=== PATIENT | female | born 1975 | race Two or more races ===

== ENCOUNTER 2024-09-06 09:57 | Outpatient (REF) | payer OTHER, SELFPAY ==
[2024-09-06 10:55] LABS: MANUAL DIFF FLAG NO
[2024-09-06 11:29] LABS: Appearance Urine Cloudy; Glucose Urine UA Negative (Negative); PH 6.5 (5.0-9.0); Specific Gravity - Urine 1.015 (1.005-1.025); UMIC TRIGGER UACC YES
[2024-09-06 11:35] LABS: UACC Culture Trigger YES
[2024-09-06 11:44] LABS: Alanine Aminotransferase 53 U/L (0-31); Albumin Level 4.2 g/dL (3.5-5.0); Alkaline Phosphatase 68 U/L (39-117); Anion Gap 10 (12-20); Aspartate Amino Transferase 40 U/L (5-31); Blood Urea Nitrogen 22 mg/dL (9-16); Calcium 9.0 mg/dL (8.4-10.2); Carbon Dioxide 26 mmol/L (22-29); Chloride 105 mmol/L (96-108); Cholesterol 202 mg/dL (<200); Estimated Glomerular Filt Rate > 60; HDL Cholesterol 58 mg/dL (>40); Potassium 4.0 mmol/L (3.3-5.1); Sodium 137 mmol/L (135-145); Total Protein 6.8 g/dL (6.5-8.0); Triglycerides 117 mg/dL (<150)
[2024-09-06 11:49] LABS: Hematocrit 35.9 % (37.0-47.0); Hemoglobin 13.1 g/dl (12.0-16.0); Imm Gran Abs Auto 0.03 X10*3/uL (0.00-0.03); Imm Gran Pct Auto 0.3 % (0.0-0.4); Lymphocytes Absolute Auto 1.6 X10*3/uL (1.2-4.9); Mean Corpuscular HGB Conc 36.5 g/dl (31.0-35.0); Mean Corpuscular Hemoglobin 29.1 pg (27.0-33.0); Mean Corpuscular Volume 79.8 fL (80.0-98.0); NRBC Abs Auto 0.000 X10*3/uL (0.0-0.012); NRBC Pct Auto 0.0 /100WBC (0.0-0.2); Platelet Count 250 X10*3/uL (160-400); Red Blood Count 4.50 X10*6/uL (4.20-5.50); White Blood Count 8.8 X10*3/uL (4.8-10.8)
== END 2024-09-06 09:58 | disposition home or self-care (01) ==
LOC: HO.LAB 09:57
PROVIDERS: PCP Physician Assistant; Visit Provider Physician Assistant
DX: I10 Essential (primary) hypertension (principal); J45.909 Unspecified asthma, uncomplicated; R30.0 Dysuria; E66.813 Obesity, class 3; Z68.41 Body mass index [BMI] 40.0-44.9, adult; F98.9 Unspecified behavioral and emotional disorders with onset usually occurring in childhood and adolescence; Z71.3 Dietary counseling and surveillance
CPT/HCPCS: 36415; 80048; 80061; 80076; 81001; 85025; 87086

== ENCOUNTER 2024-09-06 09:57 | Outpatient (AMB) | payer OTHER, SELFPAY ==
--- NOTE | 2024-09-06 10:03 | MHC.PC.OV ---
Vital Signs 09/06/24 10:06 Height 5 ft 2 in Weight 100.244 kg BMI 40.4 BP 108/62 Blood Pressure Location Lt brachial Position Sitting Respiration 16 Pulse 91 Pulse Source Pulse Oximeter Temp 97.5 F Temp Source Temporal Artery Scan Pulse Oximetry (%) 98 Oxygen Delivery Method Room Air Intake Visit Reasons: ? UTI - Croke pt. Management Professionals Required: No Accompanied by: Self / Same As Patient Allergies No Known Allergies (No Known Allergies*) Allergy (Verified 09/06/24 10:03) Medication List - Last Reconciled 09/06/24 by STEPHANIE Malik albuterol sulfate 90 mcg/actuation 2 puffs inhalation Q4H PRN lisinopril-hydrochlorothiazide 10-12.5 mg 1 tab PO DAILY Tobacco use date assessed: 09/06/24 HPI HPI Comments History of Present Illness Details 49 year old female with history of asthma, htn, obesity presents to the office for evaluation and to establish care. Asthma- controlled. Class III obesity- BMI 40.4. Going to the gym off and on. Tries to follow healthy diet. Interested in weight loss mediations. HTN- controlled iw lisinopril- hctz Concerns: Menopausal symptoms. experiences significant anxiety (also has many stressors at home), nausea, attention deficit, and physical discomfort. Using cryobooth with some pain relfief. Hot flashes and brain fog. Not interested in hormones at this time. Attention deficit- difficulty completing tasks, brain fog, difficulty concentrating. Easily overwhelmed as a result. UTI sx- suprapubic pressure, dysuria. no fevers. vaginal spotting. occ spotting after intimacy. no vaginal discharge. Monogomous. No hx recurrent UTI ROS: General: No fevers, malaise, unintentional weight loss HEENT: No blurred vision, diplopia. No sore throat, nasal congestion, rhinorrhea, sinus pain, ear pain Cardiovascular: No chest pain, palpitations, or leg edema Respiratory: No shortness of breath, wheezing, cough GI: No abdominal pain, vomiting, diarrhea, constipation, melena, hematochezia :see hpi Neuro: No headaches, weakness, paresthesias Psych: see hpi Skin: No rashes or lesions EXAM: Constitutional - Awake and Alert, No apparent distress Eyes - PERRL Cardiovascular - S1S2, RRR, No edema Respiratory - Normal lung expansion, Normal respiratory effort, No respiratory distress, CTA bilaterally Extremities - no calf tenderness bilaterally, no swelling Skin - Warm/Dry Neurological - Alert & oriented x3 Psychological - Appropriate affect [facility] Medical History (Updated 09/07/24 @ 20:48 by STEPHANIE Malik) Obesity Asthma HTN (hypertension) Social History (System 05/07/24 @ 10:30 by Nory Doty) Patient Tobacco Use Status: Never used Tobacco e-Cigarette/Vaping Use: Never Used Questionnaire AUDIT C Alcohol Use Questionnaire (AUDIT-C) 1. How often do you have a drink containing alcohol?: 2-4 times a month 2. How many drinks containing alcohol do you have on a typical day when you are drinking?: 1 or 2 Total Score: 2 Physical exam (Primary Care) Vital Signs: Last Vital Signs Temp 97.5 F 09/06/24 10:06 Pulse 91 09/06/24 10:06 Resp 16 09/06/24 10:06 BP 108/62 09/06/24 10:06 Pulse Ox 98 09/06/24 10:06 Oxygen Delivery Method Room Air 09/06/24 10:06 BMI result Body Mass Index 40.4 Tobacco/Smoking Status: Tobacco use Status Tobacco use date assessed 09/06/24 09/06/24 10:10 Patient Tobacco Use Status Never used Tobacco 09/06/24 10:10 e-Cigarette/Vaping Use Never Used 09/06/24 10:10 Coding Level of Care Code New Pt Level 4 (49473) Complex EM visit Add On G2211 Diagnoses Dysuria R30.0 Asthma J45.909 HTN (hypertension) I10 Class III morbid obesity with body mass index (BMI) of 40.0 to 49.9 E66.813 ADD (attention deficit disorder) F98.8 Assessment & Plan Assessment & Plan (1) Dysuria: Code(s): R30.0 - Dysuria Category: Medical Plan: UA suggestive of UTI. Macrobid BID prescribed. Await culture (2) Asthma: Code(s): J45.909 - Unspecified asthma, uncomplicated Category: Medical Plan: Controlled/ Albuterol prn (3) HTN (hypertension): Code(s): I10 - Essential (primary) hypertension Category: Medical Plan: Controlled. Continue current therapies (4) Class III morbid obesity with body mass index (BMI) of 40.0 to 49.9: Code(s): E66.813 - Obesity, class 3 Category: Medical Plan: Weight loss efforts encouraged- discussed healthy diet and regular exercise. Would benefit from weight loss medication given comorbid htn. Zepbound 2.5mg prescribed. (5) ADD (attention deficit disorder): Code(s): F98.8 - Other specified behavioral and emotional disorders with onset usually occurring in childhood and adolescence Category: Medical Plan: Trial adderal 10mg XL Plan Follow up in 4-6 weeks to follow up on weight loss and add. Labs to be completed Orders: Orders Complete Blood Count Auto Diff 09/06/24 I10 - Essential (primary) hypertension, J45.909 - Unspecified asthma, uncomplicated, R30.0 - Dysuria Liver Panel 09/06/24 I10 - Essential (primary) hypertension, J45.909 - Unspecified asthma, uncomplicated, R30.0 - Dysuria Basic Metabolic Panel 09/06/24 I10 - Essential (primary) hypertension, J45.909 - Unspecified asthma, uncomplicated, R30.0 - Dysuria Lipid Panel 09/06/24 I10 - Essential (primary) hypertension, J45.909 - Unspecified asthma, uncomplicated, R30.0 - Dysuria UA CC w/rflx Micro + Cult 09/06/24 I10 - Essential (primary) hypertension, J45.909 - Unspecified asthma, uncomplicated, R30.0 - Dysuria Medications: New lisinopril-hydrochlorothiazide 10-12.5 mg 1 tab PO DAILY 90 tabs 1RF albuterol sulfate 90 mcg/actuation 2 puffs inhalation Q4H PRN 8.5 grams 0RF shortness of breath or wheezing tirzepatide (weight loss) (Zepbound) for 4 weeks 2.5 mg (0.5 mL) subcut QWEEK 2 mL 0RF E66.813 - Obesity, class 3, E66.9 - Obesity, unspecified, I10 - Essential (primary) hypertension dextroamphetamine-amphetamine 10 mg ER (Adderall XR) Partial Fill upon patient request. 10 mg PO DAILY 30 caps 0RF
[2024-09-06 10:06] VITALS: BP 108/62; PULSE 91; RESP 16; TEMP 36.4; O2SAT 98; BMI 40.4
== END 2024-09-06 10:49 | disposition home or self-care (01) ==
LOC: HO.HMCHD 09:58
PROVIDERS: PCP Internal Medicine; Visit Provider Physician Assistant
DX: R30.0 Dysuria (principal); J45.909 Unspecified asthma, uncomplicated; I10 Essential (primary) hypertension; E66.813 Obesity, class 3; F98.8 Other specified behavioral and emotional disorders with onset usually occurring in childhood and adolescence

== ENCOUNTER 2024-10-14 11:07 | Outpatient (AMB) | payer OTHER, SELFPAY ==
--- NOTE | 2024-10-14 11:15 | MHC.PC.OV ---
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 She was seen in the office 1 month ago for evaluation and to establish care. At visit, she expressed great difficulty with weight loss. She had not always been following a healthy diet and had been intermittently going to the gym. She was interested in weight loss medication however both Zepbound and Wegovy were declined. She was also diagnosed with ADD based on her clinical picture and was started on Adderall 10 mg XR which she has noted significant improvement in completing tasks, less brain fog, and overall improvement in daily functioning. She states she does have some appetite suppression with the Adderall but make sure she is eating. She has also started therapy and been using cryo mari which has helped with menopausal symptoms. She has lost about 10 lb. She still is not following much of a healthy diet and has been limited and going to the gym due to a recent knee injury. ROS: General: No fevers, malaise, unintentional weight loss Cardiovascular: No chest pain, palpitations, or leg edema Respiratory: No shortness of breath, wheezing, cough MSK: No myalgia, back pain. see hpi Neuro: No headaches, weakness, paresthesias Psych: See HPI Skin: No rashes or lesions EXAM: Constitutional - Awake and Alert, No apparent distress Eyes - PERRL Cardiovascular - S1S2, RRR, No edema Respiratory - Normal lung expansion, Normal respiratory effort, No respiratory distress, CTA bilaterally Extremities - no calf tenderness bilaterally, no swelling Skin - Warm/Dry Neurological - Alert & oriented x3 Psychological - Appropriate affect [facility] Medical History (Updated 09/07/24 @ 20:48 by STEPHANIE Malik) Obesity Asthma HTN (hypertension) Social History (System 05/07/24 @ 10:30 by Nory Doty) Patient Tobacco Use Status: Never used Tobacco e-Cigarette/Vaping Use: Never Used Physical exam (Primary Care) Vital Signs: Last Vital Signs Temp 97.9 F 10/14/24 11:18 Pulse 93 10/14/24 11:18 Resp 14 10/14/24 11:18 BP 130/76 10/14/24 11:18 Pulse Ox 99 10/14/24 11:18 Oxygen Delivery Method Room Air 10/14/24 11:18 BMI result Body Mass Index 38.4 Tobacco/Smoking Status: Tobacco use Status Tobacco use date assessed 09/06/24 10/14/24 11:18 Patient Tobacco Use Status Never used Tobacco 10/14/24 11:18 e-Cigarette/Vaping Use Never Used 10/14/24 11:18 Coding Level of Care Code Est Pt Level 4 (77413) Complex EM visit Add On G2211 Diagnoses ADD (attention deficit disorder) F98.8 Class III morbid obesity with body mass index (BMI) of 40.0 to 49.9 E66.813 HTN (hypertension) I10 Assessment & Plan Assessment & Plan (1) ADD (attention deficit disorder): Code(s): F98.8 - Other specified behavioral and emotional disorders with onset usually occurring in childhood and adolescence Category: Medical Plan: Improved in stable. She has noted some level of being off with improvement of symptoms. Advised to continue Adderall 10 mg daily XR. Can consider increase to 15 mg should the symptoms persist. Advised to continue following with therapist (2) Class III morbid obesity with body mass index (BMI) of 40.0 to 49.9: Code(s): E66.813 - Obesity, class 3 Category: Medical Plan: Continue weight loss efforts. She is congratulated on 10 lb weight loss. Recommend healthy diet lower in refined sugars, simple carbohydrates and highly processed foods with emphasis on protein, fruits, vegetables. Recommend regular vigorous exercise at least 4 days per week (3) HTN (hypertension): Code(s): I10 - Essential (primary) hypertension Category: Medical Plan: Controlled. Continue lisinopril-hydrochlorothiazide 10-12.5 mg daily. Continue with weight loss efforts above. We will monitor closely given concomitant Adderall use Plan Follow-up in 6 months for annual physical exam with labs to be completed prior to visit Orders: Orders Basic Metabolic Panel 6 Months E66.813 - Obesity, class 3, F98.8 - Other specified behavioral and emotional disorders with onset usually occurring in childhood and adolescence, I10 - Essential (primary) hypertension Liver Panel 6 Months E66.813 - Obesity, class 3, F98.8 - Other specified behavioral and emotional disorders with onset usually occurring in childhood and adolescence, I10 - Essential (primary) hypertension Vitamin D 25-OH Total Today E66.813 - Obesity, class 3, F98.8 - Other specified behavioral and emotional disorders with onset usually occurring in childhood and adolescence, I10 - Essential (primary) hypertension
[2024-10-14 11:18] VITALS: BP 130/76; PULSE 93; RESP 14; TEMP 36.6; O2SAT 99; BMI 38.4
== END 2024-10-14 11:46 | disposition home or self-care (01) ==
LOC: HO.HMCHD 11:08
PROVIDERS: PCP Internal Medicine; Visit Provider Physician Assistant
DX: F98.8 Other specified behavioral and emotional disorders with onset usually occurring in childhood and adolescence (principal); E66.813 Obesity, class 3; I10 Essential (primary) hypertension